=== PATIENT | male | born 1955 | race Caucasian/White ===

== ENCOUNTER 2024-09-08 11:43 | Emergency (ER) | payer BC, MEDICARE, SELFPAY ==
[2024-09-08 11:47] VITALS: BP 145/74
[2024-09-08 14:07] LABS: % Basophils 0.6 % (0-2); % Immature Granulocytes 0.4 % (0-0.5); % Lymphocytes 31.7 % (20.5-51.1); % Monocytes 6.9 % (1.7-9.3); % Neutrophils 58.4 % (42.2-75.2); Absolute Eosinophils 0.1 10^3/uL (0-0.7); Absolute Lymphocytes 2.2 10^3/uL (1.2-3.4); Absolute Monocytes 0.5 10^3/uL (0.1-0.6); Absolute Neutrophils 4.1 10^3/uL (1.4-6.5); Hematocrit 40.5 % (39.0-52.0); Hemoglobin 13.8 g/dL (13.0-18.0); Mean Corp Hgb Conc. 34.1 g/dL (33.0-37.0); Mean Corpuscular Hgb 26.6 pg (27.0-31.0); Mean Platelet Volume 9.2 fL (7.4-10.4); Nucleated Red Blood Cells % 0 % (-); Platelet Count 201 10^3/uL (130-400); Red Blood Cell Count 5.19 10^6/uL (4.70-6.10); Red Cell Dist. Width 13.5 % (11.5-14.5); White Blood Cell Count 7.1 10^3/uL (4.8-10.8)
[2024-09-08 14:15] VITALS: BP 123/66
--- NOTE | 2024-09-08 14:34 | ED.GENMED ---
History of Present Illness
General
Chief Complaint: Musculo-Skeletal Complaint
Source: patient
Exam Limitations: none
Time Seen by Provider: 09/08/24 12:12
Nursing documentation reviewed up to this point in time: agreed with
History of Present Illness
History of Present Illness:
68-year-old male past medical history of heart disease hypertension prediabetes high cholesterol presenting to the emergency department today with concerns of right-sided knee discomfort over the past 3 weeks but also feeling a popping sensation
while walking today and feeling acutely worsened discomfort. Feels somewhat unstable when walking on the right knee also feels some pain radiating to his calf. Has been getting evaluated over the past 3 weeks for an intermittent chest achiness to
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 Denies any ongoing chest pain at this moment or of breath today. Claims that he did have some degree of mild chest pain multiple hours prior to
arrival to the emergency department today.
Review of Systems
Review of Systems
Allergies reviewed?: Yes
All Other Systems: ROS reviewed and negative except as documented in HPI and ROS
Phy Exam
Physical Exam
Physical Exam:
GENERAL: Alert , in no apparent distress
EYE: pupils equal and reactive
NECK: Supple, no significant adenopathy.
ENT: o/p clr, mmm.
CARDIAC: Regular rate and rhythm .
LUNGS: Clear breath sounds bilaterally, no acute respiratory distress, no wheezes/rales/rhonchi
ABDOMEN: Soft, without focal tenderness, no r/g, no cvat
NEUROLOGICAL: Alert and oriented, no focal neuro deficits
SKIN: Warm and dry, skin intact.
MUSCULOSKELETAL: Mild swelling to the right knee no redness or warmth good range of motion increased discomfort with George test and posterior drawer no specific joint laxity. Normal ankle examination and foot examination., well perfused.
PSYCH: Normal and appropriate interaction.
Course
Orders/Labs/Results
Orders:
Orders
09/08/24 11:52
US Legs, Right [US Periph Venous LOWER Ext RT] Urgent
Comment:
Reason For Exam: pain
09/08/24 11:53
Knee, Right 4 or More Views [CR Knee- Right 4 Or More View*] Urgent
Comment:
Reason For Exam: pain
09/08/24 13:22
Electrocardiogram (*1) Stat
Reason for Study: Other
Other Reason for Exam: chest pain
EKG- Treatment ONCE
09/08/24 13:23
CR Chest - 2 Views Urgent
Comment:
Reason For Exam: cp
09/08/24 13:55
Complete Blood Count/With Diff Urgent
NT-proBNP Urgent
Troponin I Urgent
09/08/24 15:28
Add On- LAB Urgent
Tests Added?: cmp
09/08/24 15:50
Comprehensive Metabolic Panel Urgent
09/08/24 15:51
Crutches-Treatment ONCE
Knee Immobilizer Right-Treatme ONCE
Abnormal Lab Results
09/08/24 09/08/24
13:55 15:50
MCV 78.0 L fL
(80.0-94.0)
MCH 26.6 L pg
(27.0-31.0)
Creatinine 0.6 L mg/dL
(0.7-1.3)
09/08/24 13:55
09/08/24 15:50
Vital Signs
Initial and Last Documented VS:
Initial Vital Signs
Temp Pulse Resp BP Pulse Ox
98.1 F 72 16 145/74 96
09/08/24 11:47 09/08/24 11:47 09/08/24 11:47 09/08/24 11:47 09/08/24 11:47
Last Documented Vital Signs
Temp Pulse Resp BP Pulse Ox
98.1 F 64 18 123/66 95
09/08/24 11:47 09/08/24 16:40 09/08/24 16:40 09/08/24 14:15 09/08/24 16:40
MDM/Problems Addressed
MDM/Problems Addressed:
68-year-old male presenting to the emergency department today with concerns of right-sided knee discomfort described as achy over the past 3 weeks but sharp today after he felt a pop in his knee. Difficulty ambulating today. Also has had some
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 Vital signs upon arrival are normal normal pulse ox and
normal heart rate symptoms do not seem to consistent with PE as far as the chest pain. Very atypical story for coronary syndrome. EKG performed that does not show any acute abnormalities no old EKGs for comparison but no acute concerning findings
on EKG today. Chest x-ray performed without acute abnormalities as well.
Patient is a examination with some discomfort throughout the knee joint with range of motion and laxity testing however no specific joint laxity. X-ray without acute emergent findings and ultrasound without evidence of blood clot. Patient with
likely internal knee derangement given a knee immobilizer as well as crutches and will follow-up closely with orthopedics in this regard.
*Critical Care Note
Total Time (30-74mins, 75-104mins- exclusive of procedures): Not Applicable
ED Attending Note
-
Portions of this chart may have been created with voice recognition software.� Occasional wrong word or��sound alike� substitutions may have occurred due to the inherent limitations of voice recognition software.
Discharge Plan
Departure
Patient Disposition: Home (Routine Discharge)
Patient with high blood pressure during this ER visit?: No
Condition: Good
Covid-19: Not Applicable
Discharge Problem:
Injury of knee, Chest pain
Instructions: Knee Immobilizer (DC), Knee Pain (DC), Chest Pain NON-[facility] [employer] Follow Up
Referrals:
Erick Valles MD [Active] -
UNKNOWN - PT DOES,NOT KNOW [Family Provider] -
Stand Alone Forms: Return to Work
Activity Restrictions/Additional Instructions:
You came to the emergency department today with concerns of knee discomfort over the past few weeks. Here you had an x-ray and ultrasound without emergent findings. This is likely internal knee soft tissue injury. Please use the knee immobilizer
and crutches until follow-up with orthopedics. Additionally you had a workup to ensure the causes of your chest pain. This was reassuring. Please follow-up closely with your experimental flight test mechanic for further ongoing assessment. Return to the emergency
department for any worsening, new or concerning symptoms.
Interventions
Interventions:
*Risk Screen - Suicide Last Done: 09/08/24 11:47
*General Assessment Last Done: 09/08/24 11:47
*Neglect/Abuse Screening Last Done: 09/08/24 11:47
*ED COVID-19 Vaccine History Last Done: 09/08/24 12:56
*Nursing Disposition Last Done: 09/08/24 16:35
ED-Musculoskeletal Assessment Last Done: 09/08/24 12:56
Discharge Date and Time
Discharge Date/Time: 09/08/24 16:35
Print Language: PANAMANIAN
[2024-09-08 14:38] LABS: NT-proBNP < 20.0 pg/ml; Troponin I < 0.012 ng/ml
[2024-09-08 16:15] LABS: ALT (SGPT) 29 U/L (0-50); AST (SGOT) 27 U/L (17-59); Albumin 4.3 g/dl (3.5-5.0); Alkaline Phosphatase 73 U/L (38-126); Blood Urea Nitrogen 15 mg/dl (9-20); Calcium 9.3 mg/dl (8.4-10.2); Carbon Dioxide 25 mmol/L (22-30); Chloride 104 mmol/L (98-107); Glucose 84 mg/dl (70-99); Potassium 4.3 mmol/L (3.5-5.1); Sodium 141 mmol/L (135-145); Total Bilirubin 0.6 mg/dl (0.2-1.3); Total Protein 6.7 g/dl (6.3-8.2); eGFR > 60.00
== END 2024-09-08 16:35 | disposition home or self-care (01) ==
LOC: EMR 11:43
PROVIDERS: Physician Assistant; EMERGENCY PHYSICIAN Emergency Medicine
DX: S89.91XA Unspecified injury of right lower leg, initial encounter (principal); R07.89 Other chest pain; X58.XXXA Exposure to other specified factors, initial encounter; I11.0 Hypertensive heart disease with heart failure; I50.9 Heart failure, unspecified; E78.00 Pure hypercholesterolemia, unspecified; R73.03 Prediabetes
CPT/HCPCS: 99284; 71046; 73564; 80053; 83880; 84484; 85025; 93005; 93971

== ENCOUNTER 2024-09-12 09:45 | Inpatient (IN) | payer MEDICARE, BC, SELFPAY ==
[2024-09-10 19:13] VITALS: BP 124/81
[2024-09-10 19:14] VITALS: BP 124/81
[2024-09-10 19:55] LABS: % Basophils 0.5 % (0-2); % Immature Granulocytes 0.1 % (0-0.5); % Lymphocytes 36.2 % (20.5-51.1); % Monocytes 6.5 % (1.7-9.3); % Neutrophils 54.7 % (42.2-75.2); Absolute Eosinophils 0.2 10^3/uL (0-0.7); Absolute Lymphocytes 2.8 10^3/uL (1.2-3.4); Absolute Monocytes 0.5 10^3/uL (0.1-0.6); Absolute Neutrophils 4.2 10^3/uL (1.4-6.5); Hematocrit 43.9 % (39.0-52.0); Hemoglobin 14.7 g/dL (13.0-18.0); Mean Corp Hgb Conc. 33.5 g/dL (33.0-37.0); Mean Corpuscular Hgb 26.3 pg (27.0-31.0); Mean Corpuscular Volume 78.4 fL (80.0-94.0); Mean Platelet Volume 9.6 fL (7.4-10.4); Nucleated Red Blood Cells % 0 % (-); Platelet Count 221 10^3/uL (130-400); Red Cell Dist. Width 13.5 % (11.5-14.5); White Blood Cell Count 7.7 10^3/uL (4.8-10.8)
[2024-09-10 20:00] VITALS: BP 124/87
[2024-09-10] MEDS: ROXICODONE 5 MG PO (20:02)
[2024-09-10 20:15] LABS: ALT (SGPT) 29 U/L (0-50); AST (SGOT) 24 U/L (17-59); Albumin 4.6 g/dl (3.5-5.0); Alkaline Phosphatase 74 U/L (38-126); Blood Urea Nitrogen 16 mg/dl (9-20); Calcium 9.4 mg/dl (8.4-10.2); Carbon Dioxide 24 mmol/L (22-30); Chloride 102 mmol/L (98-107); Estimated Creatinine Clearance 91 ml/min; Glucose 90 mg/dl (70-99); Sodium 141 mmol/L (135-145); Total Bilirubin 0.4 mg/dl (0.2-1.3); Total Protein 7.2 g/dl (6.3-8.2); eGFR > 60.00
[2024-09-10 20:18] LABS: Troponin I < 0.012 ng/ml
[2024-09-10] MEDS: TORADOL 15 MG IV (20:42)
--- NOTE | 2024-09-10 20:51 | ED.GENMED ---
History of Present Illness
General
Chief Complaint: Back Pain
Time Seen by Provider: 09/10/24 20:12
History of Present Illness
History of Present Illness:
Patient is a 68-year-old man with history of CAD with stents, diabetes, hypertension, hyperlipidemia presented to the emergency department with back pain. Patient states that at 4 PM he was lying down when he had sudden onset left-sided flank pain
that felt like a spasm. It is worse with movement. It does not radiate to the groin. No numbness tingling saddle anesthesia or urinary intention or incontinence. No fevers or chills. No falls. No night sweats or weight loss. He does have a
history of kidney stones. This does not feel similar. No abdominal pain diarrhea or nausea or vomiting. He did develop some chest secondary to the flank pain.
Phy Exam
Physical Exam
Physical Exam:
GENERAL: in no acute distress, intermittent acute distress secondary to the pain in his back
HEENT: normocephalic, extraocular movements intact, moist oral mucosa
NECK: normal inspection
RESPIRATORY: no respiratory distress, clear to auscultation bilaterally
CARDIOVASCULAR: regular rate and rhythm
ABDOMEN/: soft, non-distended, non-tender to palpation, no rebound or guarding, no CVA tenderness
EXTREMITIES: non-tender, no edema/swelling
NEUROLOGIC: awake and alert, moves all extremities
SKIN: warm
Course
Orders/Labs/Results
Orders:
Orders
09/10/24 19:23
EKG [Electrocardiogram (*1)] Urgent
Reason for Study: Chest Pain
EKG- Treatment ONCE
09/10/24 19:47
Complete Blood Count/With Diff Urgent
Comprehensive Metabolic Panel Urgent
Troponin I Urgent
09/10/24 20:00
Oxycodone [Roxicodone] 5 mg .R[facility]TE [facility]
09/10/24 20:01
Oxycodone [Roxicodone] 5 mg PO NOW STA
09/10/24 20:36
Urinalysis Reflex To Culture Urgent
Date Specimen was Collected: 09/11/24
Time Specimen was Collected: 01:21
Ketorolac [Toradol] 15 mg IV NOW STA
09/10/24 20:51
CT Abd/pel Without Iv Or Oral Urgent
Comment:
Reason For Exam: flank pain
09/10/24 23:35
Acetaminophen [Tylenol] 1,000 mg PO NOW STA
diazePAM [Valium Injection] 5 mg IV NOW STA
09/10/24 23:46
Lidocaine [Lidocaine 4% Patch] 1 patch .ROUTE .[facility]
09/11/24 01:09
HYDROmorphone [Dilaudid] 0.5 mg IV NOW STA
09/11/24 08:00
Lidocaine [Lidocaine 4% Patch] 1 patch TOPICAL DAILY
Apply Lidocaine patch(s) to:: back
Abnormal Lab Results
09/10/24
19:47
MCV 78.4 L fL
(80.0-94.0)
MCH 26.3 L pg
(27.0-31.0)
09/10/24 19:47
09/10/24 19:47
Vital Signs
Initial and Last Documented VS:
Initial Vital Signs
Temp Pulse Resp BP Pulse Ox
97.7 F 83 20 124/81 97
09/10/24 19:13 09/10/24 19:13 09/10/24 19:13 09/10/24 19:13 09/10/24 19:13
Last Documented Vital Signs
Temp Pulse Resp BP Pulse Ox
97.7 F 70 15 137/76 96
09/10/24 19:13 09/11/24 01:45 09/11/24 01:45 09/11/24 01:00 09/11/24 01:45
MDM/Problems Addressed
Differential Diagnosis Includes:
Patient is a 68-year-old man presenting to the emergency department with sudden onset left-sided flank pain. Vitals are unremarkable and exam shows no CVA tenderness but intermittently patient does get bouts of pain. Concern for kidney stone
versus urinary infection versus muscle spasm. Less likely to be compression fracture. History and exam not consistent with aortic pathology. No red flags for back pain to suggest epidural abscess discitis osteomyelitis transverse myelitis. Will
obtain blood work urine and CT scan. Will give IV Toradol
*Critical Care Note
Total Time (30-74mins, 75-104mins- exclusive of procedures): Not Applicable
Update Note
Update Note:
Labs unremarkable. EKG per my interpretation sinus with no ST changes. Troponin negative. Patient does states that the chest pain only occurs when he has significant back pain.
IMPRESSION: No acute pathology of the abdomen or pelvis identified.
Gallstones.
Nonobstructing right renal stone.
Benign right renal angiomyolipoma.
Too small to characterize hypodense left renal lesion possibly a benign cyst. Ill-defined margins.Nonurgent dedicated pre and post-IV contrast is recommended.
Possible rim calcification within the left kidney.. Associated isodense mass is not excluded. Nonurgent dedicated pre and post-IV contrast is recommended.
Mild fecal material in the colon.
Mild diffuse bladder wall thickening. This can be seen with cystitis and bladder outlet obstruction.
Moderate prostate hypertrophy
On reevaluation patient states that the pain is not spasming anymore. However he notes significant discomfort with movement. We did attempt to readjust him and that did cause significant discomfort. Likely component of muscular spasm. Did give
patient Valium and lidocaine patch. On reevaluation pain has slightly improved though he still having significant discomfort with movement. After lengthy discussion with family we will trial IV opioid. We did discuss that [facility]
facility[facility]rehab may be beneficial given the fact the patient is using the knee immobilizer with crutches. We also discussed that the muscular back pain could also be from the crutches and that he is preferring the left side when ambulating.
On reevaluation patient's pain has slightly improved where he is able to have an incline to his bed however any other sort of movement severely exacerbates his pain. At this time patient will need admission for intractable pain and case management
evaluation.
ED Attending Note
-
Portions of this chart may have been created with voice recognition software.� Occasional wrong word or��sound alike� substitutions may have occurred due to the inherent limitations of voice recognition software.
Discharge Plan
Departure
Patient Disposition: Admit
Date of Disposition: 09/11/24
Time of Disposition: 01:50
Presentation/result/management discussed w/ accepting MD/DO: Hospitalist
Discharge Problem:
Intractable back pain
Prescriptions:
No Action
metformin 500 mg Tablet
500 mg PO DAILY
metformin 500 mg Tablet
1,000 mg PO HS
metoprolol succinate 25 mg Tablet Extended Release 24 Hr
25 mg PO BID
valsartan 40 mg Tablet
40 mg PO HS
ezetimibe [Zetia] 10 mg Tablet
10 mg PO DAILY
dutasteride [Avodart] 0.5 mg Capsule
0.5 mg PO DAILY
dapagliflozin propanediol [Farxiga] 5 mg Tablet
5 mg PO DAILY
aspirin 81 mg Capsule
81 mg PO DAILY
Vitamin D (with calcium)
1,000 units PO DAILY
Ozempic 0.25 mg or 0.5 mg (2 mg/3 mL) Pen Injector
0.5 mg SC QWEEK
Referrals:
AKYAIR MAYS [Other]
Interventions
Interventions:
*Risk Screen - Suicide Last Done: 09/10/24 19:13
*General Assessment Last Done: 09/10/24 19:13
*Neglect/Abuse Screening Last Done: 09/10/24 19:13
ED- Fall Risk Assessment Last Done: 09/10/24 19:20
*ED COVID-19 Vaccine History Last Done: 09/10/24 19:21
ED-Musculoskeletal Assessment Last Done: 09/10/24 19:20
Discharge Date and Time
Print Language: ARABIC
[2024-09-10 21:00] VITALS: BP 127/76
[2024-09-10 22:00] VITALS: BP 123/71
[2024-09-10 23:00] VITALS: BP 126/70
[2024-09-10] MEDS: TYLENOL 1000 MG PO (23:52)
[2024-09-10] MEDS: VALIUM INJECTION 5 MG IV (23:53)
[2024-09-11] VITALS (8 sets, daily range): BP systolic 111–139; BP diastolic 68–80; BMI 30.1
[2024-09-11] MEDS: LIDOCAINE 4% PATCH 1 PATCH TOPICAL ×2 (00:49→09:25)
[2024-09-11] MEDS: DILAUDID 0.5 MG IV (01:21)
[2024-09-11 01:50] LABS: Urine Albumin Negative (Neg - Trace); Urine Bilirubin Negative (Negative); Urine Character Clear (Clear); Urine Color Yellow; Urine Glucose Negative (Negative); Urine Ketone Negative (Negative); Urine Leukocyte Negative (Negative); Urine Nitrite Negative (Negative); Urine Occult Blood Negative (Negative); Urine Specific Gravity 1.025 (<1.030); Urine Urobilinogen Negative (Neg - 1+)
--- NOTE | 2024-09-11 03:13 | HPS.HSE ---
Family Physician
-
Family Physician: YAIR STRATTON
Chief Complaint
-
Back pain
History of Present Illness
This is 68-year-old male with past medical history significant for CAD status post stenting, diabetes not on insulin, hypertension, hyperlipidemia, nephrolithiasis presented to the emergency department with spasmodic left-sided back pain that
started after being discharged from the hospital/emergency department for a right knee injury with immobilization.
Patient reported that he was seen in the emergency department 2 days ago for a right knee injury. There was concern for possible ruptured a ligament in that knee but no fractures. The knee was immobilized and the patient was given pain medications
and referral to Ortho who is supposed to see on Wednesday (today). However on Wednesday evening at around 4 PM he started having episode of sharp back pain localized to the left lower back without any radiation. Reports that the pain lasts for about 20
seconds and then wanes only to come back again in waves. The pain started while he was laying in bed. He did not provoke it with any particular movement or secondary injury. He denies having any fevers or chills. He denies having any cough.
Patient denies any hematuria. Patient denies history of back injuries. Family reports that he has been developing some back pain more recently due to a change in his work schedule where he is spending a lot of time sitting down. Patient reports
that he does have some worsening pain with deep inspiration. He denies any numbness tingling, weakness of the lower extremities, radiation of the pain to the groin or legs.
In the Emergency Department patient was afebrile, he was hemodynamically stable to blood pressure of 107/76 and 70% on room air. His ECG showed normal sinus rhythm at a rate of [address] or T wave changes, troponin was negative. UA
was unremarkable. Had CBC that was completely within normal limits. His chemistries were also unremarkable. He had a CT of the abdomen pelvis which showed no acute intra-abdominal abnormalities. No stones noted obstructing otherwise. There was
am incidental finding of 'Possible rim calcification within the left kidney.. Associated isodense mass is not excluded. Nonurgent dedicated pre and post-IV contrast is recommended.' Lung bases were clear.
Medical History
Past Medical History
Past Medical History: Reports CAD, HTN and NIDDM
Additional Past Medical History:
Nephrolithiasis
Past Surgical History: Reports None
Social History
Tobacco: Non-smoker
Alcohol: None
Drug: None
Personal:
Living: With Family
Employment: Employed
Family History
Family History: Not pertinent
Allergies / Home Medications
Allergies reflects when Allergies were last updated in [employer].
Home Medications with original date entered in [employer]
Allergy/Medication List:
Allergies
Allergy/AdvReac Type Severity Reaction Status Date / Time
IV contrast Allergy Severe Swelling Uncoded 09/11/24 00:57
Home Medications
Vitamin D (with calcium) 1,000 units PO DAILY 09/11/24
aspirin 81 mg capsule 81 mg PO DAILY 09/11/24
dapagliflozin propanediol 5 mg tablet (Farxiga) 5 mg PO DAILY 09/11/24
dutasteride 0.5 mg capsule (Avodart) 0.5 mg PO DAILY 09/11/24
ezetimibe 10 mg tablet (Zetia) 10 mg PO DAILY 09/11/24
metformin 500 mg tablet 1,000 mg PO HS 09/11/24
metformin 500 mg tablet 500 mg PO DAILY 09/11/24
metoprolol succinate 25 mg tablet,extended release 24 hr 25 mg PO BID 09/11/24
semaglutide 0.25 mg or 0.5 mg (2 mg/3 mL) subcutaneous pen injector (Ozempic) 0.5 mg SC QWEEK 09/11/24
valsartan 40 mg tablet 40 mg PO HS 09/11/24
Review of Systems
-
History Source: Patient
Constitutional: Reports No Symptoms
EENT: Reports No Symptoms
Respiratory: Reports No Symptoms
Cardiac: Reports Chest Pain
Abdomen/GI: Reports No Symptoms
: Reports Flank Pain
Musculoskeletal: Reports Muscle Pain
Skin: Reports No Symptoms
Neurological: Reports No Symptoms
Endocrine: Reports No Symptoms
Hematologic/Lymphatic: Reports No Symptoms
Psych: Reports No Symptoms
Physical Exam
Vital Signs
Vital Signs
Temp Pulse Resp BP Pulse Ox
97.7 F 68 20 124/80 93
09/10/24 19:13 09/11/24 02:45 09/11/24 02:45 09/11/24 02:00 09/11/24 02:45
Physical Exam
General: Well Developed and Pain
HEENT: NormoCephalic, Anicteric, Moist mucous membranes and Atraumatic
Respiratory: Clear
Cardiac: S1/S2 and Regular Rhythm
Breast: Deferred by me
GI: Soft, Non Tender and Non Distended
Rectal: Brown
Genito-urinary: No costovertebral tender
Musculoskeletal: No Clubbing, No Cyanosis and No Edema
Skin: Rash (slight eryhthematous macules on the left lower back, slightly along a dermatomal line that is tender to palpation)
Neuro: AO x 3
Hematologic/Lymphatic: No Lymphadenopathy
Psych: Anxious
Laboratory Results
-
09/10/24 19:47
09/10/24 19:47
Laboratory Results
Total Bilirubin 0.4 mg/dl (0.2-1.3) 09/10/24 19:47
AST 24 U/L (17-59) 09/10/24 19:47
ALT 29 U/L (0-50) 09/10/24 19:47
Alkaline Phosphatase 74 U/L (38-126) 09/10/24 19:47
Troponin I < 0.012 ng/ml 09/10/24 19:47
Data Reviewed
-
CT Scan: Report Reviewed by me
Medical Tests (Nuc Med, Echo, EKG etc): Image Personally Visualized and interpreted
Lab Data: Labs Reviewed by me
Old Records: Reviewed
Impression/Plan
-
IMPRESSION:
Patient with history of CAD, hypertension, diabetes, hyperlipidemia, BPH, nephrolithiasis who presented to the emergency department with left-sided flank and back pain. Patient was recently in the ED for pain to the right knee w/o trauma status
post bracing and referral to outpatient Ortho. 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 Now he comes in one day after bracing with pending follow up with sudden
onset severe left sided flank pain occuring while laying down resting and without any antecedent injury. No radiation of the pain. He has no infection or stones. He has no focal neurological deficits. The pain can be reproduced with palpation of
the left flank around an erythematous patch and can be intermittently exquisite. He also complains of some chest pain when the flank pain is severe. Testing is negative for any acute process and pain is not typical for radiculopathy. Suspect
muscle pull/spasm but did not feel any spasms on exam. Unlikely shingles given only minor erythematous patch w/o vessicles. After multiple doses of analgesics in ED patient was still uncomfortable and could not be taken home. He has an outpatient
ortho appointment for the knee evaluation today and family is requesting MRI of the knee and inpatient ortho evaluation.
PLAN:
1. Flank Pain/MSK - Suspect musculoskeletal with ambulatory dysfunction. Possibly spasm triggered by the right leg immobilization. Rash is atypical for shingles w/o papules, vessicles, crusts. No signs of infection, stones, radiculopathy.
- admit to med surg
- continue supportive management with tylenol, oxycodone, lidocaine patch and tizanidine prn
- gave one time dose of gabapentin
- a physical exam by ortho is much more informative initial eval for his knee but unfortunately outpatient appointment is today. Family request MRI knee. Not ordered, consider ortho consult
- pt
2. CAD - h/o CAD s/p stenting. Outpatient evaulation of the last 3 weeks for intermittent chest achiness. ECG and troponin negative here today. Pain is atypical
- continue aspirin, ezetimibe and metoprolol
- bp control with valsartan
3. DM II
- continue metformin with insulin sliding scale
- continue dapagliflozin
DVT PPX - lovenox sq
Code Status - Full Code
[2024-09-11] MEDS: NEURONTIN 100 MG PO (03:49)
[2024-09-11] MEDS: LR 500 IV (03:49)
[2024-09-11 05:06] LABS: Glucose - Point of Care 116 mg/dl (70-99)
[2024-09-11] MEDS: TYLENOL 650 MG PO ×4 (05:34→16:41)
--- NOTE | 2024-09-11 06:35 | PTCARENOTE ---
Receive pt from ER. Pt alert oriented X3, calm in no distress. Pt pulled over to his bed. Pt oriented to the room, call weiner within reach. Pt states that his pain is in the left flank area. It is 1-2/10 when he is lying down. The pain got worse with
movement. VSS (T=97.4, HR=70, RR=18, CG=542/79, SpO2=94% on RA). Lidocaine patch placed in the ED, Tylenol scheduled given as per order. Will continue to monitor the pt.
--- NOTE | 2024-09-11 08:15 | PTCARENOTE ---
Pt /family refusing VS at this time.
[2024-09-11] MEDS: ZETIA 10 MG PO (09:24)
[2024-09-11] MEDS: FARXIGA 5 MG PO (09:24)
[2024-09-11] MEDS: TOPROL XL 25 MG PO ×2 (09:24→22:27)
[2024-09-11] MEDS: PROSCAR 5 MG PO (09:25)
[2024-09-11] MEDS: ASPIR LOW (ENTERIC COATED) 81 MG PO (09:25)
[2024-09-11] MEDS: GLUCOPHAGE 500 MG PO (09:25)
--- NOTE | 2024-09-11 09:40 | W.PN.HOSP.TC ---
Today's Communication/Plan
-
Pain control
MRI studies
Consult Ortho
Repeat troponin
Check ESR & CRP
Assessment / Plan
Assessment / Plan
Physical Exam
General: Well Developed and Pain
HEENT: NormoCephalic, Anicteric, Moist mucous membranes and Atraumatic
Respiratory: Clear
Cardiac: S1/S2 and Regular Rhythm
GI: Soft, Non Tender and Non Distended
Rectal: Brown
Genito-urinary: No costovertebral tender
Musculoskeletal: No Clubbing, No Cyanosis and No Edema
Skin: Rash (slight erythematous macules on the left lower back, slightly along a dermatomal line that is tender to palpation)
Neuro: AO x 3, he followed commands, gait not assessed
Hematologic/Lymphatic: No Lymphadenopathy
Psych: calm, Anxious
# Lower left back pain / Flank Pain/MSK - Suspect musculoskeletal with ambulatory dysfunction. Possibly spasm triggered by the right leg immobilization. Rash is atypical for shingles w/o papules, versicles, crusts. No signs of infection, stones,
radiculopathy. Normal WBC, no fevers
CT did not show acute abnormality in kidneys but it was w/o contrast
- continue supportive management with Tylenol, Dilaudid,oxycodone, lidocaine patch and tizanidine prn
- Order ESR & CRP
- a physical exam by ortho is much more informative initial evaluation for his knee but unfortunately outpatient appointment was missed. Family requested MRI knee + Back and ortho consult.
- Order PT/OR
# Right knee pain
Tender point in last/ back side
No swelling
c/w pain control
X ray no fracture
will do MRI
f/w ortho consult
# CAD - h/o CAD s/p stenting. Outpatient evaluation of the last 3 weeks for intermittent chest achiness. ECG some changes noted
Initial troponin negative , will recheck
No pain now
- continue aspirin, ezetimibe and metoprolol
- bp control with valsartan
# Primary Hypertension
c/w home meds.
# DM II
- continue metformin with insulin sliding scale
- continue dapagliflozin
# DVT PPX - Lovenox sq
Code Status - Full Code
Total time spent to see the patient on the floor, examine the patient, review data and lab results, discuss treatment plan with patient, nursing staff around 55 minutes
Anticipated Discharge: 24 - 48 hours
Subjective/Interval History
-
Date of Service: September 11, 2024
He complained of pain in left lower back , pain medicine helped
Pain in right knee- not severe now while not moving
Had chest pressure earlier but not now
Objective Data
-
Vital Signs:
Vital Signs
Temp Pulse Resp BP Pulse Ox
97.8 F 72 16 139/76 94
09/11/24 09:20 09/11/24 09:24 09/11/24 09:20 09/11/24 09:24 09/11/24 09:21
[2024-09-11 10:17] LABS: Erythrocyte Sed Rate 10 mm/hour (0-20)
[2024-09-11 10:26] LABS: Troponin I < 0.012 ng/ml
[2024-09-11 11:56] LABS: Glucose - Point of Care 107 mg/dl (70-99)
--- NOTE | 2024-09-11 11:56 | CM ---
Patient seen bedside with daughters, initial assessment completed. Patient resides with his in a three story home, three steps to enter home, full flight of steps to bedroom. Patient typically resides in [place], vacation home in [place], will be
discharging to vacation home in [place]. Patient denies use of DME, currently has crutches for knee. Patient reports he has done outpatient PT in the past. Patient confirms [facility] coverage. CARRILLO
reviewed, refused to sign, placed in chart. Patient and daughters inquiring if patient will be switched to inpatient status, CM sent TT to UR CM. CM will continue to follow for all discharge planning needs.
Plan; home with family, watch for PT evals.
--- NOTE | 2024-09-11 16:44 | PTCARENOTE ---
Pt AAO x3, LANDIN; OOB to BR/ambulated to stretcher in [place] with assist x1/walker, anne well; ambulates slowly; keeps Rt knee immobilizer on. VSS. On room air- pulse ox 93%, no SOB noted. Abd soft, rounded, anne PO well. Voiding in urinal/BR without
difficulty. pt c/o pain in Lt lower back with movement/HOB raised, laying flat in bed for most of shift. pt states no pain 'as long as I am not moving'. resting quietly at present; family members at bedside. Will continue to monitor.
[2024-09-11 16:48] LABS: Glucose - Point of Care 99 mg/dl (70-99)
[2024-09-11] MEDS: LOVENOX 40 MG SC (18:05)
[2024-09-11] MEDS: DIOVAN 40 MG PO (22:26)
[2024-09-11] MEDS: TYLENOL PO (22:27)
[2024-09-11 22:32] LABS: Glucose - Point of Care 109 mg/dl (70-99)
[2024-09-11] MEDS: GLUCOPHAGE 1000 MG PO (22:32)
[2024-09-11] MEDS: ROXICODONE 5 MG PO (22:41)
[2024-09-12] MEDS: TYLENOL PO ×4 (00:44→22:23)
[2024-09-12] MEDS: ROXICODONE 5 MG PO ×3 (07:25→21:56)
[2024-09-12 07:48] LABS: Glucose - Point of Care 86 mg/dl (70-99)
--- NOTE | 2024-09-12 07:50 | W.PN.UPDATE ---
Update Note
Progress Note Update
Pt seen and chart reviewed
Has R knee meniscus tear/DJD/partial PCL tear
Please have him set up appt with Dr. Jacobo Glover at [facility]
He can call [phone] Glover is aware and expecting the call
I did reach out to the spine surgery service--hopefully they can see him in consult as inpt
Suspect nerve root compromise
thanks
GGMD
[2024-09-12 07:55] VITALS: BP 118/72
--- NOTE | 2024-09-12 09:34 | W.PN.HOSP.TC ---
Today's Communication/Plan
-
f/w ortho
continue with pain control
Assessment / Plan
Assessment / Plan
Physical Exam
General: Well Developed and Pain
HEENT: NormoCephalic, Anicteric, Moist mucous membranes and Atraumatic
Respiratory: Clear
Cardiac: S1/S2 and Regular Rhythm
GI: Soft, Non Tender and Non Distended
Rectal: Brown
Genito-urinary: No costovertebral tender
Musculoskeletal: No Clubbing, No Cyanosis and No Edema
Skin: Rash (slight erythematous macules on the left lower back, slightly along a dermatomal line that is tender to palpation)
Neuro: AO x 3, he followed commands, gait not assessed
Hematologic/Lymphatic: No Lymphadenopathy
Psych: calm, Anxious
# Lower left back pain / Flank Pain/MSK
MRI showed mild central stenosis, mild amount of acute bone marrow edema in the inferior endplate of L3 and inferior endplate of L4 surrounding small endplate Schmorl nodes, diffuse DJD
Rash is atypical for shingles w/o papules, versicles, crusts. No signs of infection, stones, radiculopathy. Normal WBC, no fevers. Normal CRP & ESR
CT did not show acute abnormality in kidneys but it was w/o contrast
- continue supportive management with Tylenol, Dilaudid, oxycodone, lidocaine patch and tizanidine prn
consulted ortho, seen by Dr Davenport,
- a physical exam by ortho is much more informative initial evaluation for his knee but unfortunately outpatient appointment was missed. Family requested MRI knee + Back and ortho consult.
- Ordered PT/OR
- Await sine surgery evaluation. No warning signs, good bladder and bowel control. C/w pain control.
# Right knee pain
c/w immobilizer
per Dr Davenport: Has R knee meniscus tear/DJD/partial PCL tear. Please have him set up appt with Dr. Jacobo Glover at [facility]. He can call [phone] Glover is aware and expecting the call
c/w pain control
X ray no fracture
# CAD - h/o CAD s/p stenting. Outpatient evaluation of the last 3 weeks for intermittent chest achiness. ECG some changes noted
Initial troponin negative , will recheck
No pain now
- continue aspirin, ezetimibe and metoprolol
- bp control with valsartan
# Primary Hypertension
c/w home meds.
# DM II
- continue metformin with insulin sliding scale
- continue dapagliflozin
# DVT PPX - Lovenox sq
Code Status - Full Code
Total time spent to see the patient on the floor, examine the patient, review data and lab results, discuss treatment plan with patient, Ortho doctor, nursing staff around 55 minutes
Anticipated Discharge: 24 - 48 hours
Subjective/Interval History
-
Date of Service: September 12, 2024
No chest pain
No sob
No fevers
Pain is better controlled.
Objective Data
-
Vital Signs:
Vital Signs
Temp Pulse Resp BP Pulse Ox
98.4 F 64 18 118/72 95
09/12/24 07:55 09/12/24 07:55 09/12/24 07:55 09/12/24 07:55 09/12/24 07:55
I&O
09/11/24 09/12/24 09/13/24
06:59 06:59 06:59
Intake Total 1140 / 1140
Balance 1140 / 1140
[2024-09-12 09:50] VITALS: BP 125/74; O2SAT 98
[2024-09-12] MEDS: GLUCOPHAGE 500 MG PO (09:52)
[2024-09-12] MEDS: FARXIGA 5 MG PO (09:53)
[2024-09-12] MEDS: ASPIR LOW (ENTERIC COATED) 81 MG PO (09:53)
[2024-09-12] MEDS: TYLENOL 650 MG PO ×2 (09:53→15:33)
[2024-09-12] MEDS: ZETIA 10 MG PO (09:53)
[2024-09-12] MEDS: LIDOCAINE 4% PATCH 1 PATCH TOPICAL (09:53)
[2024-09-12] MEDS: TOPROL XL 25 MG PO ×2 (09:54→21:57)
[2024-09-12] MEDS: PROSCAR 5 MG PO (09:54)
[2024-09-12 12:31] LABS: Glucose - Point of Care 103 mg/dl (70-99)
[2024-09-12 15:48] VITALS: BP 133/78
--- NOTE | 2024-09-12 16:11 | CM ---
Lengthy bedside meeting with pt and dtr
Pt now inpatient status- IMM verbally reviewed
Copy provided
Questions regarding Medicare obs vs inpatient billing answered
Plan for home with outpt therapy on dc- he plans to attend outpt center
He will need a WW and commode provided by therapy on dc
Pt requesting copy of all imaging and records on dc
Call with radiology ext. [phone]
Nursing to call on dc and they will tube up copies of imaging
Call with records release- for quicker turn around time of 24/48 hours, he should complete an online request
Directions provided to dtr for completing patient portal and to request records online provided
Discharge Disposition- home with outpt therapy, new WW and commode
[2024-09-12 16:35] LABS: Glucose - Point of Care 99 mg/dl (70-99)
[2024-09-12] MEDS: LOVENOX 40 MG SC (17:37)
[2024-09-12 21:37] LABS: Glucose - Point of Care 111 mg/dl (70-99)
[2024-09-12] MEDS: DIOVAN 40 MG PO (21:57)
[2024-09-12] MEDS: GLUCOPHAGE 1000 MG PO (21:57)
[2024-09-12 23:45] VITALS: BP 118/76
--- NOTE | 2024-09-13 04:32 | DOWNTIME ---
There was a [employer] Client [employer]ologist Downtime on 09/13/2024 from 0100 to 09/13/2024 at 0355. Downtime documentation of patient's care, including medication administrations, has been reconciled in the electronic record per guidelines. Refer to the
patient's paper chart under the miscellaneous tab to see printed paper medication records and downtime forms.
[2024-09-13] MEDS: TYLENOL PO ×3 (04:33→13:07)
[2024-09-13 08:02] LABS: Glucose - Point of Care 86 mg/dl (70-99)
[2024-09-13 08:12] VITALS: BP 137/83
[2024-09-13] MEDS: ROXICODONE 5 MG PO ×2 (08:41→12:56)
[2024-09-13] MEDS: LIDOCAINE 4% PATCH 1 PATCH TOPICAL (08:43)
[2024-09-13] MEDS: ZETIA 10 MG PO (08:44)
[2024-09-13] MEDS: PROSCAR 5 MG PO (08:45)
[2024-09-13] MEDS: TOPROL XL 25 MG PO (08:45)
[2024-09-13] MEDS: ASPIR LOW (ENTERIC COATED) 81 MG PO (08:45)
[2024-09-13] MEDS: GLUCOPHAGE 500 MG PO (08:45)
[2024-09-13] MEDS: FARXIGA 5 MG PO (08:46)
[2024-09-13] MEDS: TYLENOL 650 MG PO (08:46)
--- NOTE | 2024-09-13 09:05 | CON.MD ---
Consultation - Medical
-
09/13/2024
Spine Consult Note
cc: Left sided lower back pain
hpi: This patient is a 68 yo M admitted to the hospital with left lower back pain that began three weeks after sustaining a right knee injury diagnoses with meniscal and ligaments tears currently in a knee immobilizer. The patient denies radiation
of the pain into the buttocks or lower extremities. He had episode lower back pain 4-5 years ago and diagnoses at that time with degenerative disc disease. Denies bowel/bladder irregularities.
Exam is notable for tenderness over the left SI joint, full painless ROM of bilateral hips. Negative nerve root tension signs.
Motor is 5/5/ in the bilateral Q/IP/EHL/TA/GSC. SILT L2-S1.
w/wp
MRI and Abd CT reviewed with underlying spondyloarthropathy changes. L3-S1 disc degenerative changes with endplate edema and Schmorl's node. Mild central and foraminal stenosis at L5-S1 only, otherwise no areas of neuroforaminal stenosis.
A/P: I discussed with the patient along with his family in the room diagnosis of episodic axial low back pain versus a left sacroilitis. We discussed the current treatment regimen consisting of analgesia is working to lessen his pain and he would
likely benefit from a course of physical therapy once he is an outpatient. We discussed that he'll follow up with our spine physiatrists as an outpatient and Dr. Lowe can be seen in the [place] office along with knee application packaging specialist that
he is scheduled to see at phone number
--- NOTE | 2024-09-13 09:41 | W.PN.HOSP.TC ---
Today's Communication/Plan
-
dc
Assessment / Plan
Assessment / Plan
Physical Exam
General: Well Developed and Pain
HEENT: NormoCephalic, Anicteric, Moist mucous membranes and Atraumatic
Respiratory: Clear
Cardiac: S1/S2 and Regular Rhythm
GI: Soft, Non Tender and Non Distended
Rectal: Brown
Genito-urinary: No costovertebral tender
Musculoskeletal: No Clubbing, No Cyanosis and No Edema
Skin: Rash (slight erythematous macules on the left lower back, slightly along a dermatomal line that is tender to palpation)
Neuro: AO x 3, he followed commands, gait not assessed
Hematologic/Lymphatic: No Lymphadenopathy
Psych: calm, Anxious
# Lower left back pain / Flank Pain/MSK
MRI showed mild central stenosis, mild amount of acute bone marrow edema in the inferior endplate of L3 and inferior endplate of L4 surrounding small endplate Schmorl nodes, diffuse DJD
Rash is atypical for shingles w/o papules, versicles, crusts. No signs of infection, stones, radiculopathy. Normal WBC, no fevers. Normal CRP & ESR
CT did not show acute abnormality in kidneys but it was w/o contrast
- continue supportive management with Tylenol, Dilaudid, oxycodone, lidocaine patch and tizanidine prn
consulted ortho, seen by Dr Eric Dillard, recommended OP follow up, no need for an intervention
- Ordered PT/OR
# Right knee pain
c/w immobilizer
per Dr Davenport: Has R knee meniscus tear/DJD/partial PCL tear. Please have him set up appt with Dr. Jacobo Glover at [facility]. He can call [phone] Glover is aware and expecting the call
c/w pain control
X ray no fracture
# Chronic headache, frontal and non specific.
Seems constant at 1-2 level and at times more, since 2018. No photophobia, not associated with new medicine at the time, no tinnitus, no N/V. Reports history of lack of good deep sleep, I recommend to rule out KAMRAN and perhaps benefit from headache
clinic with neurology, to f/w his PCP ( He had talked to his PCP & Industrial Relations Commissioner ) about it. He denies depression. Uses eye glasses with no issues. His mother had migraine.
# CAD - h/o CAD s/p stenting. Outpatient evaluation of the last 3 weeks for intermittent chest achiness. ECG some changes noted
Initial troponin negative , will recheck
No pain now
- continue aspirin, ezetimibe and metoprolol
- bp control with valsartan
# Primary Hypertension
c/w home meds.
# DM II
- continue metformin with insulin sliding scale
- continue dapagliflozin
# DVT PPX - Lovenox sq
Code Status - Full Code
Total dc time spent to see the patient on the floor, examine the patient, review data and lab results, discuss discharge plan with patient, Spine doctor, nursing staff around 67 minutes
Anticipated Discharge: Today
Subjective/Interval History
-
Date of Service: September 13, 2024
Objective Data
-
Vital Signs:
Vital Signs
Temp Pulse Resp BP Pulse Ox
98.3 F 81 18 137/83 96
09/13/24 08:12 09/13/24 08:12 09/13/24 08:12 09/13/24 08:12 09/13/24 08:12
I&O
09/12/24 09/13/24 09/14/24
06:59 06:59 06:59
Intake Total 1140 / 1140 1080 / 1080
Balance 1140 / 1140 1080 / 1080
[2024-09-13] MEDS: FLUAD (65 yr+) 2024-2025 FORMULA 0.5 ML IM (10:41)
--- NOTE | 2024-09-13 11:29 | CM ---
nurse manager reviewed patient's chart and patient expressed concerns regarding OBS status on admission, patient stated that OBS status was not explained to him in the Emergency Room, patient has since switched to inpatient and has now been cleared
for discharge to home. IMM completed at 11:15am, and placed on chart, plan is for outpatient PT/OT, and PT will provided walker and commode.
Plan; Home with spouse no needs.
[2024-09-13 11:55] LABS: Glucose - Point of Care 110 mg/dl (70-99)
[2024-09-13 12:22] VITALS: BP 125/77; PULSE 78; O2SAT 95
[2024-09-13 12:53] VITALS: BP 134/72; PULSE 69; O2SAT 98
[2024-09-13 13:41] VITALS: BP 132/71
--- NOTE | 2024-09-13 15:23 | W.DCSUMMARY ---
Discharge Summary
Discharge Data
Date of Admission: 09/12/24
Date of Discharge: 09/13/24
-
Pending Results: No
Hospital Course
68 years old male with recent right knee injury presented with severe lower back pain. Patient had right knee injury and was in knee immobilizer 2 days before admission. Patient reported that he started to have sudden onset of lower back pain
mostly on the left side, not radiating. Patient denied fever or chills. He did not have skin rash. No leukocytosis. Normal ESR and CRP. X-ray of the knee did not show fracture. Patient had MRI of the right knee and lumbar spine. MRI and CAT
scan of the abdominal/pelvic part showed underlying spondyloarthropathy changes, L3-S1 disc degenerative changes with endplate edema and Schmorl's node, mild central and foraminal stenosis at L5-S1 only otherwise no areas of neuroforaminal
stenosis. Patient did not have urinary or bowel incontinence. Full painless range of movement of bilateral hips with negative nerve root tension signs. He was evaluated by spine surgeon Dr. Eric Dillard and recommended outpatient follow-up with
spine rn recruitment at [facility]. Dr. Davenport evaluated the right knee. MRI showed meniscal tear, degenerative changes and posterior partial PCL tear. Patient was kept on knee immobilizer. He was referred to follow-up with Dr. Jacobo Glover for
sports medicine. Physical therapy evaluated the patient and he was able to ambulate with rolling walker. Pain was controlled with use of Tylenol. Patient did well did not need high doses of opioid treatment. He was given prescription of
oxycodone to be used as needed. Patient verbalized understanding to potential side effects of opioid. Patient remained hemodynamically stable and was discharged in a stable condition.
Discharge Plan
-
Patient Disposition: Home (Routine Discharge)
Discharge Diagnosis/Procedures:
-CAD
-HTN
-Diabetes
-Chronic headache: recommend OP PCP follow up, might benefit from sleep study and headache clinic with neurology.
Right knee injury: Follow with Dr. Jacobo Glover at [facility]. Call [phone] Glover is aware and expecting the call
-Lower back pain, episodic axial low back pain versus a left sacroiliitis: follow up with our spine physiatrists as an outpatient and Dr. Lowe, can be seen in the [place] office, phone number
Use Tylenol for mild to moderate pain. Avoid excessive use of nonsteroidal anti-inflammatory medications as Advil. Use oxycodone for severe pain. Avoid driving/operating machinery while taking oxycodone due to opioid side effects including
drowsiness. Oxycodone can cause constipation, use stimulant laxatives if needed as Dulcolax or Senna.
Diet: As tolerated and Diabetic, Carb Controlled
Referrals:
Jacobo Glover MD [Non-Admitting Privileges] - in less than 1 week
UNKNOWN - PT DOES,NOT KNOW [Family Provider] -
Prescriptions:
New
lidocaine 4 % Adhesive Patch,Medicated
1 patch topical DAILY Qty: 30 0RF
oxycodone 5 mg Tablet
5 mg PO Q8HPRN PRN (Reason: severe pain) Qty: 15 0RF
acetaminophen [Tylenol Extra Strength] 500 mg tablet
1,000 mg PO QID PRN (Reason: mild to moderate pain) Qty: 30 0RF
Continued
metformin 500 mg Tablet
500 mg PO DAILY
metformin 500 mg Tablet
1,000 mg PO HS
metoprolol succinate 25 mg Tablet Extended Release 24 Hr
25 mg PO BID
valsartan 40 mg Tablet
40 mg PO HS
ezetimibe [Zetia] 10 mg Tablet
10 mg PO DAILY
dutasteride [Avodart] 0.5 mg Capsule
0.5 mg PO DAILY
dapagliflozin propanediol [Farxiga] 5 mg Tablet
5 mg PO DAILY
aspirin 81 mg Capsule
81 mg PO DAILY
Vitamin D (with calcium)
1,000 units PO DAILY
Ozempic 0.25 mg or 0.5 mg (2 mg/3 mL) Pen Injector
0.5 mg SC QWEEK
Discharge Orders:
Discharge Patient (As Directed); Ordered 09/13/24
Ordered By: Esteban Mary
Discharge Date and Time
Discharge Date/Time: 09/13/24 13:47
Print Language: NORWEGIAN
== END 2024-09-13 13:47 | disposition home or self-care (01) | DRG 552 ==
LOC: 4 EAST ACU 09:45
PROVIDERS: ADMITTING PHYSICIAN Internal Medicine; ATTENDING PHYSICIAN Internal Medicine; EMERGENCY PHYSICIAN Student in an Organized Health Care Education/Training Program; OTHER PHYSICIAN Orthopaedic Surgery; OTHER PHYSICIAN Orthopaedic Surgery Hand Surgery
DX: M48.061 Spinal stenosis, lumbar region without neurogenic claudication (principal); E11.9 Type 2 diabetes mellitus without complications; I10 Essential (primary) hypertension; M54.50 Low back pain, unspecified; M48.07 Spinal stenosis, lumbosacral region; B02.9 Zoster without complications; D17.71 Benign lipomatous neoplasm of kidney; E78.5 Hyperlipidemia, unspecified; I25.10 Atherosclerotic heart disease of native coronary artery without angina pectoris; Z95.5 Presence of coronary angioplasty implant and graft; K80.20 Calculus of gallbladder without cholecystitis without obstruction; N20.0 Calculus of kidney; N40.0 Benign prostatic hyperplasia without lower urinary tract symptoms; M47.816 Spondylosis without myelopathy or radiculopathy, lumbar region; M25.561 Pain in right knee; S83.281A Other tear of lateral meniscus, current injury, right knee, initial encounter; S83.521A Sprain of posterior cruciate ligament of right knee, initial encounter; M47.817 Spondylosis without myelopathy or radiculopathy, lumbosacral region; X58.XXXA Exposure to other specified factors, initial encounter; R07.9 Chest pain, unspecified; Z79.84 Long term (current) use of oral hypoglycemic drugs; Z79.899 Other long term (current) drug therapy
CPT/HCPCS: 72148; 73721; 74176; 80053; 81003; 82962; 84484; 85025; 85652; 86140; 90662; 93005; 96374; 96375; 97116; 97162; 97166; 97530; 99285; G0008

== ENCOUNTER 2025-01-27 16:41 | Emergency (ER) | payer MEDICARE, BC, SELFPAY ==
[2025-01-27 16:51] VITALS: BP 149/85
[2025-01-27 17:25] LABS: COVID-19 Antigen Negative (Negative)
--- NOTE | 2025-01-27 18:10 | ED.GENMED ---
History of Present Illness
General
Chief Complaint: Fever
Source: patient
Exam Limitations: none
Time Seen by Provider: 01/27/25 17:53
History of Present Illness
History of Present Illness:
See MDM
Past History
Past History
ED Past Medical History: CAD, Hypercholesterolemia and NIDDM
ED Past Surgical History: Cardiac
Social History
Tobacco: Non-smoker
Alcohol: None
Phy Exam
Physical Exam
Physical Exam:
See MDM
Course
Orders/Labs/Results
Orders:
Orders
01/27/25 16:54
COVID-19 Antigen Urgent
Source: Nasal Swab
01/27/25 17:14
Influenza A+B Rapid Molecular Urgent
YVETTE Source: Nasal Swab
Specimen Description:
01/27/25 18:09
Electrocardiogram (*1) Urgent
Reason for Study: Shortness of Breath
EKG- Treatment ONCE
0.9% Sodium Chloride 1000 ml [Nss] 1,000 ml IV BOLUS
Acetaminophen [Tylenol] 1,000 mg PO NOW STA
01/27/25 18:10
CR Chest - 2 Views Urgent
Comment:
Reason For Exam: SOB, Cough
01/27/25 18:19
Complete Blood Count/With Diff Urgent
Comprehensive Metabolic Panel Urgent
Troponin I Urgent
01/27/25 18:51
Benzocaine/Menthol [Anesthetic Lozenge] 1 lozenge PO ONCE ONE
Abnormal Lab Results
01/27/25
18:19
MCH 26.8 L pg
(27.0-31.0)
MCHC 32.8 L g/dL
(33.0-37.0)
BUN 22 H mg/dl
(9-20)
01/27/25 18:19
03/01/25 18:19
Vital Signs
Initial and Last Documented VS:
Initial Vital Signs
Temp Pulse Resp BP Pulse Ox
98.5 F 98 16 149/85 96
01/27/25 16:51 01/27/25 16:51 01/27/25 16:51 01/27/25 16:51 01/27/25 16:51
Last Documented Vital Signs
Temp Pulse Resp BP Pulse Ox
98.5 F 86 26 111/58 95
01/27/25 18:30 01/27/25 18:30 01/27/25 18:30 01/27/25 19:08 01/27/25 19:45
MDM/Problems Addressed
Differential Diagnosis Includes:
HPI and MDM Narrative:
69-year-old male presenting for evaluation of shortness of breath, cough and chest pressure. This occurred about 4 days ago while on vacation. Patient found to be flu positive on arrival to the emergency department. Patient is more concerned
because he has a cardiac history. He is now complaining of chest discomfort which has been ongoing for few days. He states he did get his flu shot this year. He is out of the Tamiflu window. Will obtain screening EKG and will obtain basic blood
work to rule out concern for ACS
Physical exam
General: Well appearing and non-toxic
HEENT: protecting airway
Neck: appears supple
CV: No evidence of cyanosis. Regular rate and rhythm
Resp: No accessory muscle use. Lungs clear
Abd: Non-distended
Extremities: No deformities
Neuro: alert
Psych: Normal affect
Skin: Intact
Problems Addressed including Acute and Chronic Conditions affecting care:
1. Influenza A
Acuity: acute
Prognosis: stable
Details: Patient out of Tamiflu window. Discussed supportive care
2. Chest discomfort
Acuity: acute
Prognosis: stable
Details: Likely related to persistent coughing. Will obtain chest x-ray, EKG and troponin
Updates
Chest x-ray clear. Troponin negative. On reassessment after fluids, patient feeling much better and feels comfortable going home
Differential Diagnosis (but not limited to): Influenza, pneumonia, bronchospasm, acute coronary syndrome
Testing considered: D-dimer but he is neither tachycardic nor hypoxic
Drug therapy (if applicable): OTC meds, please see d/c instruction regarding Rx drugs
Amount and/or Complexity of Data Reviewed
Clinical info obtained from: Patient
External data reviewed: N/A
Labs I independently reviewed (but not limited to): Troponin normal
Radiology: X-ray independently reviewed: Chest x-ray clear
Pulse Ox: not hypoxic
EKG independently reviewed: Sinus rhythm, normal axis, no STEMI
Iron Worker Apprentice: Sinus rhythm
Critical Care: N/A
Risk of Complication:
Social Determinants of health: Good social support
Discussed with other providers: N/A
Escalation of Care includes Admit/Obs: After being observed in the Emergency Department, pt stable for discharge.
Occasional wrong word or 'sound a like' substitutions may have occurred due to the inherent limitations of voice recognition software. Read the chart carefully and recognize, using context, where substitutions have occurred.
*Critical Care Note
Total Time (30-74mins, 75-104mins- exclusive of procedures): Not Applicable
ED Attending Note
-
Portions of this chart may have been created with voice recognition software.� Occasional wrong word or��sound alike� substitutions may have occurred due to the inherent limitations of voice recognition software.
Discharge Plan
Departure
Patient Disposition: Home (Routine Discharge)
Date of Disposition: 01/27/25
Time of Disposition: 20:19
Patient with high blood pressure during this ER visit?: No
Discharge Problem:
Influenza A
Instructions: Flu
Prescriptions:
No Action
metformin 500 mg Tablet
500 mg PO DAILY
metformin 500 mg Tablet
1,000 mg PO HS
metoprolol succinate 25 mg Tablet Extended Release 24 Hr
25 mg PO BID
valsartan 40 mg Tablet
40 mg PO HS
ezetimibe [Zetia] 10 mg Tablet
10 mg PO DAILY
dutasteride [Avodart] 0.5 mg Capsule
0.5 mg PO DAILY
dapagliflozin propanediol [Farxiga] 5 mg Tablet
5 mg PO DAILY
aspirin 81 mg Capsule
81 mg PO DAILY
Vitamin D (with calcium)
1,000 units PO DAILY
Ozempic 0.25 mg or 0.5 mg (2 mg/3 mL) Pen Injector
0.5 mg SC QWEEK
lidocaine 4 % Adhesive Patch,Medicated
1 patch topical DAILY Qty: 30 0RF
oxycodone 5 mg Tablet
5 mg PO Q8HPRN PRN (Reason: severe pain) Qty: 15 0RF
acetaminophen [Tylenol Extra Strength] 500 mg tablet
1,000 mg PO QID PRN (Reason: mild to moderate pain) Qty: 30 0RF
Referrals:
NONE,* [Family Provider] -
Activity Restrictions/Additional Instructions:
Please return for any worsening symptoms.
You may return at any time if you have further concerns.
Please follow up with your doctor at the first available appointment, preferably this week.
Thank you for choosing [facility].
Interventions
Interventions:
*Risk Screen - Suicide Last Done: 01/27/25 16:51
*General Assessment Last Done: 01/27/25 18:30
*Neglect/Abuse Screening Last Done: 01/27/25 16:51
ED- Fall Risk Assessment Last Done: 01/27/25 18:30
*ED COVID-19 Vaccine History Last Done: 01/27/25 18:30
ED- Neurological Assessment Last Done: 01/27/25 18:30
ED-Skin Assessment Last Done: 01/27/25 18:30
Discharge Date and Time
Print Language: VIETNAMESE
[2025-01-27 18:19] VITALS: BMI 29.3
[2025-01-27 18:25] VITALS: BP 118/74
[2025-01-27] MEDS: TYLENOL 1000 MG PO (18:26)
[2025-01-27] MEDS: NSS 1000 IV (18:28)
[2025-01-27 18:30] VITALS: BP 118/74
[2025-01-27 18:36] LABS: % Basophils 0.2 % (0-2); % Eosinophils 0.4 % (0-6); % Immature Granulocytes 0.2 % (0-0.5); % Lymphocytes 28.3 % (20.5-51.1); % Neutrophils 61.9 % (42.2-75.2); Absolute Lymphocytes 1.5 10^3/uL (1.2-3.4); Absolute Monocytes 0.5 10^3/uL (0.1-0.6); Absolute Neutrophils 3.4 10^3/uL (1.4-6.5); Hematocrit 44.2 % (39.0-52.0); Hemoglobin 14.5 g/dL (13.0-18.0); Mean Corp Hgb Conc. 32.8 g/dL (33.0-37.0); Mean Corpuscular Hgb 26.8 pg (27.0-31.0); Mean Corpuscular Volume 81.7 fL (80.0-94.0); Mean Platelet Volume 9.2 fL (7.4-10.4); Nucleated Red Blood Cells % 0 % (-); Platelet Count 159 10^3/uL (130-400); Red Blood Cell Count 5.41 10^6/uL (4.70-6.10); Red Cell Dist. Width 13.6 % (11.5-14.5); White Blood Cell Count 5.5 10^3/uL (4.8-10.8)
[2025-01-27 18:56] LABS: Troponin I < 0.012 ng/ml
[2025-01-27 18:59] LABS: ALT (SGPT) 29 U/L (0-50); AST (SGOT) 31 U/L (17-59); Albumin 4.3 g/dl (3.5-5.0); Alkaline Phosphatase 61 U/L (38-126); Blood Urea Nitrogen 22 mg/dl (9-20); Calcium 8.8 mg/dl (8.4-10.2); Carbon Dioxide 29 mmol/L (22-30); Chloride 100 mmol/L (98-107); Estimated Creatinine Clearance 97 ml/min; Glucose 99 mg/dl (70-99); Potassium 4.4 mmol/L (3.5-5.1); Sodium 139 mmol/L (135-145); Total Bilirubin 0.7 mg/dl (0.2-1.3); Total Protein 6.7 g/dl (6.3-8.2); eGFR > 60.00
[2025-01-27] MEDS: ANESTHETIC LOZENGE 1 LOZENGE PO (19:07)
[2025-01-27 19:08] VITALS: BP 111/58
--- NOTE | 2025-01-27 20:17 | EDRN ---
Dr. Hazel back in talking with patient.
== END 2025-01-27 20:41 | disposition home or self-care (01) ==
LOC: EMR 16:41
PROVIDERS: EMERGENCY PHYSICIAN Student in an Organized Health Care Education/Training Program
DX: J10.1 Influenza due to other identified influenza virus with other respiratory manifestations (principal); I25.10 Atherosclerotic heart disease of native coronary artery without angina pectoris; E78.00 Pure hypercholesterolemia, unspecified; E11.9 Type 2 diabetes mellitus without complications
CPT/HCPCS: 99283; 96360; 71046; 80053; 84484; 85025; 87502; 87811; 93005

== ENCOUNTER 2025-03-27 14:57 | Outpatient (RCR) | payer MEDICARE, BC, SELFPAY | END 2025-03-27 23:59 | disposition home or self-care (01) | LOC: RPT 14:57 | PROVIDERS: ATTENDING PHYSICIAN Orthopaedic Surgery Sports Medicine; FAMILY PHYSICIAN Internal Medicine | DX: M25.561 Pain in right knee (principal); M25.562 Pain in left knee; Z73.6 Limitation of activities due to disability; S83.521D Sprain of posterior cruciate ligament of right knee, subsequent encounter; X58.XXXD Exposure to other specified factors, subsequent encounter | CPT/HCPCS: 97110; 97162 ==

== ENCOUNTER 2025-04-17 15:11 | Outpatient (RCR) | payer MEDICARE, BC, SELFPAY | END 2025-04-17 23:59 | disposition home or self-care (01) | LOC: RPT 15:11 | PROVIDERS: ATTENDING PHYSICIAN Orthopaedic Surgery Sports Medicine; FAMILY PHYSICIAN Internal Medicine | DX: M25.561 Pain in right knee (principal); M25.562 Pain in left knee; Z73.6 Limitation of activities due to disability; S83.521D Sprain of posterior cruciate ligament of right knee, subsequent encounter; X58.XXXD Exposure to other specified factors, subsequent encounter | CPT/HCPCS: 97110 ==

== ENCOUNTER 2025-04-20 09:01 | Emergency (ER) | payer MEDICARE, BC, SELFPAY ==
[2025-04-20 09:04] VITALS: BP 132/74
--- NOTE | 2025-04-20 09:13 | ED.GENMED ---
History of Present Illness
General
Chief Complaint: Chest Pain
Time Seen by Provider: 04/20/25 09:13
History of Present Illness
History of Present Illness:
TIME OF INITIAL ENCOUNTER: 9:15 AM
HPI: The patient presents primarily with right upper extremity discomfort that started over 24 hours ago. It worsened approximately 12 hours ago. It is overall improved currently this morning. It did not recently worsen. However it was
persisting so he came in here for further evaluation as this feels very similar to when he had a heart attack over 10 years ago. He had some left-sided chest discomfort. He was also concerned of the possibility of a blood clot to the right upper
extremity. He did have a shoulder injection yesterday and now notes some ecchymosis to the distal right upper extremity near the volar wrist. The symptoms do not worsen with exertion. The symptoms worsen with movement and palpation.
EXAM:
GENERAL: Well appearing in no distress
HEENT: Moist oral mucosa
CARDIOVASCULAR: No murmurs, normal heart rate, regular rhythm, moderate left-sided anterior chest wall tenderness
PULMONARY: No respiratory distress, breath sounds are clear and equal
ABDOMEN: Soft with no peritoneal signs, no tenderness
NEUROLOGIC: Excellent strength all extremities, no coordination deficits
PSYCHIATRIC: Appropriate mental status, normal insight and judgement
EXTREMITIES: Nontender, no edema, moves all extremities equally
SKIN: There is some ecchymosis noted to the volar distal right wrist
NUMBER AND COMPLEXITY OF PROBLEMS ADDRESSED AT THE ENCOUNTER
� Chronic conditions affecting care: CAD, has had ND with coronary stent, high blood pressure, hyperlipidemia, diabetes
� Acute Exacerbation and/or Progression of Chronic Illness: This is an acute problem
� Differential Diagnosis includes: Musculoskeletal chest wall pain/upper extremity pain, ACS very unlikely given normal EKG and no exertional symptoms, DVT extremely unlikely, ecchymosis related to recent procedure
AMOUNT AND/OR COMPLEXITY OF DATA TO BE REVIEWED AND ANALYZED
� I performed an independent evaluation of and my interpretation is:
EKG: Sinus 63, no acute ST abnormality, PACs are no longer present in comparison to the EKG from 01/27/2025
CT:
X-rays:
Laboratory Studies: White count and hemoglobin are normal, chemistries unremarkable, troponin less than 0.012 despite over 24 hours of symptoms.
Other: Ultrasound imaging shows no sign of DVT
� Review of other/old records: The patient was admitted with intractable low back pain and was evaluated by Peg at that time.
� Clinical information was obtained by an independent historian: None needed
� Prescriptions/Medications Considered but not given:
� Further testing considered but not performed:
RISK OF COMPLICATIONS AND/OR MORBIDITY OR MORTALITY OF PATIENT MANAGEMENT
� Social determinants of health affecting care: Lives at home
� Discussion with other providers:
� Escalation of care including admission/observation vs risk of discharge considered: The patient has a normal EKG, reproducible left-sided chest discomfort, no exertional symptoms, and pain in the right upper extremity that
worsens with movement of the right upper extremity. However given his age with history of ND over 10 years ago with similar symptoms, EKG and troponin obtained.
ANY OTHER UPDATES:
11 AM: The patient's workup is unremarkable. Troponin and ultrasound unremarkable. He appears very comfortable at time of discharge. Suspect musculoskeletal etiologies. I did question if he had some faint bruising tracking down his arm that was
originating from his right shoulder procedure.
Past History
Past History
ED Past Medical History: CAD, Hypercholesterolemia and NIDDM
ED Past Surgical History: Cardiac
Social History
Tobacco: Non-smoker
Alcohol: None
Phy Exam
Physical Exam
Physical Exam:
See HPI
Scores
Heart Score for Chest Pain Patients
STEMI patient?: Not applicable
Course
Orders/Labs/Results
Orders:
Orders
04/20/25 09:02
Electrocardiogram (*1) Urgent
Reason for Study: Chest Pain
EKG- Treatment ONCE
04/20/25 09:21
US Periph Venous UPPER Ext RT Urgent
Comment:
Reason For Exam: swelling; distal ecchymosis
04/20/25 09:31
Complete Blood Count/With Diff Urgent
Comprehensive Metabolic Panel Urgent
Troponin I Urgent
04/20/25 09:42
Sterile Water [Sterile Water For Injection] 10 ml .ROUTE .STK-MED ONE
Abnormal Lab Results
04/20/25
09:31
MCH 26.8 L pg
(27.0-31.0)
MCHC 32.9 L g/dL
(33.0-37.0)
Chloride 110 H mmol/L
(98-107)
Creatinine 0.6 L mg/dL
(0.7-1.3)
Glucose 100 H mg/dl
(70-99)
04/20/25 09:31
04/20/25 09:31
Vital Signs
Initial and Last Documented VS:
Initial Vital Signs
Temp Pulse Resp BP Pulse Ox
37.2 C 73 18 132/74 96
04/20/25 09:04 04/20/25 09:04 04/20/25 09:04 04/20/25 09:04 04/20/25 09:04
Last Documented Vital Signs
Temp Pulse Resp BP Pulse Ox
37.2 C 73 18 132/74 96
04/20/25 09:04 04/20/25 09:04 04/20/25 09:04 04/20/25 09:04 04/20/25 09:04
*Critical Care Note
Total Time (30-74mins, 75-104mins- exclusive of procedures): Not Applicable
ED Attending Note
-
Portions of this chart may have been created with voice recognition software.� Occasional wrong word or��sound alike� substitutions may have occurred due to the inherent limitations of voice recognition software.
Discharge Plan
Departure
Prescriptions:
No Action
metformin 500 mg Tablet
500 mg PO DAILY
metformin 500 mg Tablet
1,000 mg PO HS
metoprolol succinate 25 mg Tablet Extended Release 24 Hr
25 mg PO BID
valsartan 40 mg Tablet
40 mg PO HS
ezetimibe [Zetia] 10 mg Tablet
10 mg PO DAILY
dutasteride [Avodart] 0.5 mg Capsule
0.5 mg PO DAILY
dapagliflozin propanediol [Farxiga] 5 mg Tablet
5 mg PO DAILY
aspirin 81 mg Capsule
81 mg PO DAILY
Vitamin D (with calcium)
1,000 units PO DAILY
Ozempic 0.25 mg or 0.5 mg (2 mg/3 mL) Pen Injector
0.5 mg SC QWEEK
lidocaine 4 % Adhesive Patch,Medicated
1 patch topical DAILY Qty: 30 0RF
oxycodone 5 mg Tablet
5 mg PO Q8HPRN PRN (Reason: severe pain) Qty: 15 0RF
acetaminophen [Tylenol Extra Strength] 500 mg tablet
1,000 mg PO QID PRN (Reason: mild to moderate pain) Qty: 30 0RF
Interventions
Interventions:
*Risk Screen - Suicide Last Done: 04/20/25 09:04
*General Assessment Last Done: 04/20/25 09:04
*Neglect/Abuse Screening Last Done: 04/20/25 09:04
ED- Cardiac Assessment Last Done: 04/20/25 09:29
Discharge Date and Time
Print Language: INDONESIAN
[2025-04-20 09:29] VITALS: BMI 28.4
[2025-04-20 09:47] LABS: % Basophils 0.5 % (0-2); % Eosinophils 1.4 % (0-6); % Immature Granulocytes 0.2 % (0-0.5); % Lymphocytes 23.6 % (20.5-51.1); % Neutrophils 68.3 % (42.2-75.2); Absolute Basophils 0.1 10^3/uL (0-0.2); Absolute Eosinophils 0.1 10^3/uL (0-0.7); Absolute Lymphocytes 2.2 10^3/uL (1.2-3.4); Absolute Monocytes 0.6 10^3/uL (0.1-0.6); Absolute Neutrophils 6.2 10^3/uL (1.4-6.5); Hematocrit 43.2 % (39.0-52.0); Hemoglobin 14.2 g/dL (13.0-18.0); Mean Corp Hgb Conc. 32.9 g/dL (33.0-37.0); Mean Corpuscular Hgb 26.8 pg (27.0-31.0); Mean Corpuscular Volume 81.5 fL (80.0-94.0); Mean Platelet Volume 9.7 fL (7.4-10.4); Nucleated Red Blood Cells % 0 % (-); Platelet Count 200 10^3/uL (130-400); Red Cell Dist. Width 13.9 % (11.5-14.5); White Blood Cell Count 9.1 10^3/uL (4.8-10.8)
[2025-04-20 09:58] LABS: ALT (SGPT) 18 U/L (0-50); AST (SGOT) 17 U/L (17-59); Albumin 4.6 g/dl (3.5-5.0); Alkaline Phosphatase 60 U/L (38-126); Blood Urea Nitrogen 17 mg/dl (9-20); Calcium 9.2 mg/dl (8.4-10.2); Carbon Dioxide 26 mmol/L (22-30); Chloride 110 mmol/L (98-107); Estimated Creatinine Clearance 106 ml/min; Glucose 100 mg/dl (70-99); Potassium 4.3 mmol/L (3.5-5.1); Sodium 141 mmol/L (135-145); Total Bilirubin 0.5 mg/dl (0.2-1.3); eGFR > 60.00
[2025-04-20 10:13] LABS: Troponin I < 0.012 ng/ml
[2025-04-20 11:09] VITALS: BP 117/75
== END 2025-04-20 11:40 | disposition home or self-care (01) ==
LOC: EMR 09:01
PROVIDERS: EMERGENCY PHYSICIAN Emergency Medicine; FAMILY PHYSICIAN Internal Medicine
DX: R07.89 Other chest pain (principal); M79.601 Pain in right arm
CPT/HCPCS: 80053; 84484; 85025; 93005; 93971; 99285

== ENCOUNTER 2025-05-01 15:06 | Outpatient (RCR) | payer MEDICARE, BC, SELFPAY | END 2025-05-03 07:23 | disposition home or self-care (01) | LOC: RPT 15:06 | PROVIDERS: ATTENDING PHYSICIAN Orthopaedic Surgery Sports Medicine; FAMILY PHYSICIAN Internal Medicine | DX: M25.561 Pain in right knee (principal); M25.562 Pain in left knee; Z73.6 Limitation of activities due to disability; S83.521D Sprain of posterior cruciate ligament of right knee, subsequent encounter; X58.XXXD Exposure to other specified factors, subsequent encounter | CPT/HCPCS: 97110 ==